=== PATIENT | female | born 1940 | race Hispanic/Latino ===

== ENCOUNTER → 2018-04-01 | Outpatient (CLI) | payer MEDICARE ==
[~2018-04-01] VITALS: Ht 151.1 cm; Wt 95.3 kg
[~2018-04-01] MED LIST: AEC81 PO; AMLO10TA2 PO; ATOR10TA69 PO; CEFTRIAXONE SODIUM 1 GM IVP SCH; DEXL60CA3 PO; DOCU100C33 PO; DONE5TAB33 PO; FURO20TA4 PO; GLIM2TAB3 PO; GLIM4TAB3 PO; LOSA1TAB54 PO; MEMA14CA5 PO
[2018-04-01 15:45] VITALS: BP 127/60
[2018-04-01 16:04] LABS: HEMATOCRIT 34.8 % (36-48); LYMPHOCYTES % (AUTO) 29.6 % (21.0-51.0); MEAN CORPUSCULAR HEMOGLOBIN 34.6 pg (27.0-33.0); MEAN CORPUSCULAR HGB CONC 34.6 g/dL (32.0-36.0); MEAN CORPUSCULAR VOLUME 99.8 fL (79-99); NEUTROPHILS % (AUTO) 58.4 % (40.0-77.0); NUCLEATED RED BLOOD CELLS 0.1 % (0.0-0.19); PLATELET COUNT (AUTO) 154 K/uL (130-400); RED BLOOD CELL COUNT(AUTO) 3.48 MIL/uL (4.00-5.50); RED CELL DISTRIBUTION WIDTH 14.1 % (11.0-15.5); WHITE BLOOD COUNT (AUTO) 4.4 K/uL (4.8-10.8)
[2018-04-01 16:06] LABS: APPEARANCE,URINE Clear (CLEAR); BILIRUBIN,URINE Negative (NEGATIVE); COLOR,URINE Yellow (YELLOW); GLUCOSE, URINE (UA) Negative (NEGATIVE); KETONES,URINE Negative (NEGATIVE); LEUKOCYTE ESTERASE ,URINE Large (NEGATIVE); NITRATE,URINE Negative (NEGATIVE); OCCULT BLOOD,URINE Small (NEGATIVE); PROTEIN,URINE Negative (NEGATIVE)
[2018-04-01 16:13] LABS: CREATININE 1.2 mg/dL (0.5-1.5); POTASSIUM 4.1 mmol/L (3.5-5.1)
[2018-04-01 16:15] LABS: BACTERIA,URINE Rare /HPF (None Seen); RBC,URINE 0-1 /HPF (0-1)
== END | disposition home or self-care (01) ==
LOC: DAH 10:00 → EDSTATUS 05-02 11:30
PROVIDERS: ATTEND Urology
DX: I21.9 Acute myocardial infarction, unspecified (principal); N39.41 Urge incontinence; R94.31 Abnormal electrocardiogram [ECG] [EKG]
CPT/HCPCS: 36415; 80048; 81001; 85025; 87088; 87186; 93005

== ENCOUNTER 2019-03-13 09:27 | Day surgery (SDC) | payer OTHER, MEDICARE ==
[2019-03-11 15:15] VITALS: BP 145/62
[2019-03-11 16:00] LABS: BASOPHILS % (AUTO) 0.7 % (0.0-5.0); LYMPHOCYTES % (AUTO) 20.8 % (21.0-51.0); MEAN CORPUSCULAR HEMOGLOBIN 32.9 pg (27.0-33.0); MEAN CORPUSCULAR HGB CONC 32.8 g/dL (32.0-36.0); MEAN CORPUSCULAR VOLUME 100.3 fL (79-99); MONOCYTES % (AUTO) 8.6 % (3.0-13.0); NEUTROPHILS % (AUTO) 67.9 % (40.0-77.0); PLATELET COUNT (AUTO) 131 K/uL (130-400); RED BLOOD CELL COUNT(AUTO) 3.19 MIL/uL (4.00-5.50); RED CELL DISTRIBUTION WIDTH 14.6 % (11.0-15.5); WHITE BLOOD COUNT (AUTO) 5.5 K/uL (4.8-10.8)
[2019-03-11 16:04] LABS: APPEARANCE,URINE SL CLOUDY (CLEAR); BILIRUBIN,URINE NEGATIVE (NEGATIVE); COLOR,URINE YELLOW (YELLOW); GLUCOSE, URINE (UA) NEGATIVE (NEGATIVE); KETONES,URINE NEGATIVE (NEGATIVE); LEUKOCYTE ESTERASE ,URINE SMALL (NEGATIVE); NITRATE,URINE NEGATIVE (NEGATIVE); OCCULT BLOOD,URINE NEGATIVE (NEGATIVE); PROTEIN,URINE NEGATIVE (NEGATIVE)
[2019-03-11 16:11] LABS: CREATININE 1.3 mg/dL (0.5-1.5); POTASSIUM 4.1 mmol/L (3.5-5.1)
[2019-03-11 16:20] LABS: BACTERIA,URINE Rare /HPF (None Seen); RBC,URINE None Seen /HPF (0-1)
--- NOTE | 2019-03-12 08:38 | NUR ---
FAXED ABNORMAL LABS TO DR. KEE. SPOKE TO BRANDI AT DR. KEE SHE WILL REPORT ABNORMALS AND CALL BACK IF NEEDED. REPORTED RBC3.19,HGB 10.5, HCT32.0,BUN 25, UA LEUKEST SMALL [facility]-5UA CULTURE.
--- NOTE | 2019-03-12 09:39 | NUR ---
RAFAEL COLLINS COFFEE BLENDER REVIEWED EKG, NO NEW ORDERS OK TO PROCEED. PER MARCUS FROM DR. KEE OFFICE NO NEW ORDERS AFTER SEEING LABS OK TO PROCEED.
[2019-03-13] VITALS (18 sets, daily range): BP systolic 121–148; BP diastolic 47–74
[~2019-03-13] VITALS: Ht 149.9 cm; Wt 93.9 kg
[~2019-03-13 09:27] MED LIST changes: -AMLO10TA2 PO; +AMLO10TA7 PO; +ATOR-2 PO; -ATOR10TA69 PO; +CEFTRIAXONE SODIUM 1 GM IVP ONE; -CEFTRIAXONE SODIUM 1 GM IVP SCH; -DOCU100C33 PO; -DONE5TAB33 PO; -FURO20TA4 PO; -GLIM4TAB3 PO; -MEMA14CA5 PO; +VITAMIN B12 PO; +VITAMIN D PO
[2019-03-13] MEDS ORDERED: SODIUM CHLORIDE 0.9% 1000ML 1,000 ML IV ONE (10:08)
[2019-03-13] MEDS ORDERED: CEFTRIAXONE SODIUM 1 GM ONE (10:08)
[2019-03-13] MEDS ORDERED: SERT50TA12 PO (10:29)
[2019-03-13] MEDS ORDERED: DONE10TA43 PO (10:29)
[2019-03-13] MEDS ORDERED: CHOL400C9 PO (10:29)
[2019-03-13] MEDS ORDERED: LIDOCAINE HCL 2% PF 20 ML JEL DISP.SYRIN MM ONE (11:48)
[2019-03-13] MEDS ORDERED: PROPOFOL 10 MG/ML 20ML VIAL IV ONE ×2 (11:51→12:14)
[2019-03-13] MEDS ORDERED: LIDOCAINE PF 2% 5ML ABBOJECT ONE (11:52)
[2019-03-13] MEDS ORDERED: BOTULINUM TOXIN TYPE A 100 UNITS/VIAL INJ SCH (12:00)
[2019-03-13] MEDS ORDERED: GLYCOPYRROLATE 1 MG/5 ML SYRINGE ONE (13:23)
--- NOTE | 2019-03-13 15:00 | NUR ---
PT DISCHARGED HOME, TOLERATING FLUIDS WELL (DRANK APPLE JUICE AND WATER), AMBULATING WELL S STAND-BY ASSISTANCE. DENIES ANY PAIN, NAUSEA OR DIZZINESS. NO EVIDENCE OF BLEEDING. PT VOIDED PRIOR TO DISCHARGE, SOME URINE PRESENT ON DRAW-SHEET, PT ALSO VOIDED INTO TOILET, APPEARS CLEAR YELLOW IN COLOR. PT AND DAUGHTER REPORT NO FURTHER QUESTIONS AT THIS TIME.
== END 2019-03-13 15:00 | disposition home or self-care (01) ==
LOC: DAH 09:27
PROVIDERS: ATTEND Urology
DX: N39.41 Urge incontinence (principal); I10 Essential (primary) hypertension; E66.9 Obesity, unspecified; E11.9 Type 2 diabetes mellitus without complications; K59.00 Constipation, unspecified; G30.9 Alzheimer's disease, unspecified; M19.90 Unspecified osteoarthritis, unspecified site; Z88.8 Allergy status to other drugs, medicaments and biological substances; Z98.890 Other specified postprocedural states
CPT/HCPCS: 36415; 52287; 80048; 81001; 82948 ×3; 85025; 87088; 93005; A4215; A4218; A4358; A4600; J0585; J0696; J2001; J2704 ×2; J3490; J7030; J7120

== ENCOUNTER → 2019-04-29 | Outpatient (CLI) | payer OTHER, MEDICARE ==
[~2019-04-29] MED LIST changes: -CEFTRIAXONE SODIUM 1 GM IVP ONE; +CHOL400C9 PO; +DONE10TA43 PO; +SERT50TA12 PO; -VITAMIN D PO
[2019-04-29 11:54] LABS: BASOPHILS % (AUTO) 0.8 % (0.0-5.0); EOSINOPHILS % (AUTO) 2.8 % (0.0-8.0); HEMATOCRIT 31.7 % (36-48); LYMPHOCYTES % (AUTO) 20.9 % (21.0-51.0); MEAN CORPUSCULAR HEMOGLOBIN 33.4 pg (27.0-33.0); MEAN CORPUSCULAR HGB CONC 33.1 g/dL (32.0-36.0); MEAN CORPUSCULAR VOLUME 100.8 fL (79-99); MONOCYTES % (AUTO) 8.3 % (3.0-13.0); NEUTROPHILS % (AUTO) 67.2 % (40.0-77.0); PLATELET COUNT (AUTO) 113 K/uL (130-400); RED BLOOD CELL COUNT(AUTO) 3.14 MIL/uL (4.00-5.50); RED CELL DISTRIBUTION WIDTH 14.5 % (11.0-15.5); WHITE BLOOD COUNT (AUTO) 4.4 K/uL (4.8-10.8)
== END | disposition home or self-care (01) ==
LOC: LAB 11:08
PROVIDERS: ATTEND Psychiatry & Neurology Neurology
DX: D53.1 Other megaloblastic anemias, not elsewhere classified (principal); M81.0 Age-related osteoporosis without current pathological fracture
CPT/HCPCS: 36415; 82306; 82607; 83090; 83921; 85025

== ENCOUNTER 2019-10-30 08:00 | Day surgery (SDC) | payer OTHER, MEDICARE ==
[2019-10-27 12:07] LABS: APPEARANCE,URINE Cloudy (CLEAR); BILIRUBIN,URINE Negative (NEGATIVE); COLOR,URINE Yellow (YELLOW); GLUCOSE, URINE (UA) Negative (NEGATIVE); KETONES,URINE Negative (NEGATIVE); LEUKOCYTE ESTERASE ,URINE Moderate (NEGATIVE); NITRATE,URINE Positive (NEGATIVE); OCCULT BLOOD,URINE Negative (NEGATIVE); PROTEIN,URINE Negative (NEGATIVE)
[2019-10-27 12:08] LABS: BASOPHILS % (AUTO) 0.8 % (0.0-5.0); EOSINOPHILS % (AUTO) 2.4 % (0.0-8.0); HEMATOCRIT 31.9 % (36-48); LYMPHOCYTES % (AUTO) 23.5 % (21.0-51.0); MEAN CORPUSCULAR HEMOGLOBIN 32.4 pg (27.0-33.0); MEAN CORPUSCULAR VOLUME 104.2 fL (79-99); MONOCYTES % (AUTO) 6.9 % (3.0-13.0); NEUTROPHILS % (AUTO) 66.2 % (40.0-77.0); PLATELET COUNT (AUTO) 159 K/uL (130-400); RED BLOOD CELL COUNT(AUTO) 3.06 MIL/uL (4.00-5.50); RED CELL DISTRIBUTION WIDTH 14.5 % (11.0-15.5); WHITE BLOOD COUNT (AUTO) 5.1 K/uL (4.8-10.8)
[2019-10-27 12:09] VITALS: BP 153/76
[2019-10-27 12:09] LABS: CREATININE 0.9 mg/dL (0.5-1.5); POTASSIUM 4.3 mmol/L (3.5-5.1)
[2019-10-27 12:22] LABS: BACTERIA,URINE Many /HPF (None Seen); RBC,URINE 0-1 /HPF (0-1); SQUAMOUS EPITHELIAL CELL,UR 0-2 /HPF (0-2)
--- NOTE | 2019-10-28 11:30 | NUR ---
ABNORMAL UA REPORTED TO DR. KEE. DR. KEE STATES OFFICE WILL HAVE TO CALL IN PRE MEDICATION TO PATIENTS PHARMACY. DR. KEE NURSE SARTHAK MCKINNEY NOTIFIED, AND STATED SHE WILL FOLLOWUP.
[2019-10-30] VITALS (18 sets, daily range): BP systolic 112–146; BP diastolic 56–78
[~2019-10-30] VITALS: Ht 147.3 cm; Wt 90.3 kg
[~2019-10-30 08:00] MED LIST changes: +ARIP5TAB56 PO; +ATOR10TA69 PO; +GABA-529 PO; -GLIM2TAB3 PO; +GLIM2TAB30 PO; +MELA3TAB66 PO; +NEURIVA PO; -SERT50TA12 PO
[2019-10-30] MEDS ORDERED: SODIUM CHLORIDE 0.9% 1000ML 1,000 ML IV ONE (08:22)
[2019-10-30] MEDS: BOTULINUM TOXIN TYPE A 100 UNITS/VIAL INJ SCH ×2 (08:30→11:21)
[2019-10-30] MEDS: CEFTRIAXONE SODIUM 1 GM ONE ×2 (08:48→11:12)
[2019-10-30] MEDS ORDERED: LEVO500T89 PO (09:11)
[2019-10-30] MEDS ORDERED: DEXAMETHASONE SOD PHOSPHATE 10MG/ML 1ML VIAL ONE (11:05)
[2019-10-30] MEDS ORDERED: MIDAZOLAM HCL 1 MG/ML 2ML VIAL ONE (11:06)
[2019-10-30] MEDS ORDERED: FENTANYL CITRATE PF 50 MCG/1 ML 2ML VIAL ONE (11:06)
[2019-10-30] MEDS ORDERED: PROPOFOL 10 MG/ML 20ML VIAL IV ONE (11:06)
[2019-10-30] MEDS ORDERED: ONDANSETRON HCL 4 MG/2 ML VIAL ONE (11:06)
[2019-10-30] MEDS ORDERED: GLYCOPYRROLATE 1 MG/5 ML SYRINGE ONE (11:22)
== END 2019-10-30 13:21 | disposition home or self-care (01) ==
LOC: DAH 08:00
PROVIDERS: ATTEND Urology
DX: N39.41 Urge incontinence (principal); N30.80 Other cystitis without hematuria; I10 Essential (primary) hypertension; E11.9 Type 2 diabetes mellitus without complications; G47.33 Obstructive sleep apnea (adult) (pediatric); E66.9 Obesity, unspecified; M19.90 Unspecified osteoarthritis, unspecified site; G30.9 Alzheimer's disease, unspecified; Z88.8 Allergy status to other drugs, medicaments and biological substances; F02.80 Dementia in other diseases classified elsewhere, unspecified severity, without behavioral disturbance, psychotic disturbance, mood disturbance, and anxiety; Z96.653 Presence of artificial knee joint, bilateral; Z98.890 Other specified postprocedural states; Z68.41 Body mass index [BMI] 40.0-44.9, adult; Z79.2 Long term (current) use of antibiotics; Z79.899 Other long term (current) drug therapy; Z79.82 Long term (current) use of aspirin; Z87.891 Personal history of nicotine dependence; Z86.010 Personal history of colon polyps; Z82.49 Family history of ischemic heart disease and other diseases of the circulatory system; Z83.3 Family history of diabetes mellitus
CPT/HCPCS: 36415; 52287; 80048; 81001; 82948 ×2; 85025; 87077; 87088; 87186; 93005; A4213; A4215 ×2; A4221; A4222; A4223; A4600; A4663; A4930; A6260; J0585; J0696; J1100; J2250; J2405; J2704; J3010; J3490; J7030; J7120

== ENCOUNTER 2020-05-28 12:00 | Inpatient (IN) | payer OTHER, MEDICARE ==
[~2020-05-28] VITALS: Ht 154.9 cm; Wt 81.7 kg
[~2020-05-28 12:00] MED LIST changes: +LEVO500T89 PO; +MELA3TAB41 PO; -MELA3TAB66 PO
[2020-05-28 12:32] LABS: BASOPHILS % (AUTO) 0.3 % (0.0-5.0); EOSINOPHILS % (AUTO) 1.7 % (0.0-8.0); HEMATOCRIT 32.6 % (36-48); LYMPHOCYTES % (AUTO) 5.7 % (21.0-51.0); MEAN CORPUSCULAR HGB CONC 33.4 g/dL (32.0-36.0); MEAN CORPUSCULAR VOLUME 98.8 fL (79-99); NEUTROPHILS % (AUTO) 85.4 % (40.0-77.0); PLATELET COUNT (AUTO) 200 K/uL (130-400); RED CELL DISTRIBUTION WIDTH 13.6 % (11.0-15.5); WHITE BLOOD COUNT (AUTO) 7.8 K/uL (4.8-10.8)
[2020-05-28 12:53] LABS: ALBUMIN 2.9 g/dL (3.5-5.0); BILIRUBIN,TOTAL 0.8 mg/dL (0.2-1.0); CREATININE 2.9 mg/dL (0.5-1.5); CRP QUANTITATIVE 160.7 mg/L (0.00-9.0); POTASSIUM 4.5 mmol/L (3.5-5.1)
[2020-05-28 12:53] LABS: ABG BASE EXCESS -3.8 mmol/L (-2.0-3.0); ABG HCO3 19.1 mmol/L (21.0-28.0); ABG OXYGEN SATURATION 94.9 % (95.0-99.0); ABG PCO2 29 mmHg (32-45)
[2020-05-28 12:58] LABS: FERRITIN 499 ng/mL (15-150)
[2020-05-28 13:41] LABS: INR 0.97 (0.85-1.15); PARTIAL THROMBOPLASTIN TIME 26.1 SEC (26.3-35.5); PROTHROMBIN TIME 10.5 SEC (9.6-11.6)
[2020-05-28 13:45] LABS: ERYTHROCYTE SEDIMENTATION RATE 80 MM/HR (0-30)
[2020-05-28] MEDS ORDERED: CEFTRIAXONE SODIUM 1 GM ONE (14:31)
[2020-05-28] MEDS ORDERED: SODIUM CHLORIDE 0.9% 1000ML 2,000 ML IV ONE (14:32)
[2020-05-28] MEDS ORDERED: SODIUM CHLORIDE 0.9% 100 ML IV ONE (14:32)
[2020-05-28 14:38] LABS: APPEARANCE,URINE Clear (CLEAR); BILIRUBIN,URINE Negative (NEGATIVE); COLOR,URINE Yellow (YELLOW); GLUCOSE, URINE (UA) Negative (NEGATIVE); KETONES,URINE Negative (NEGATIVE); LEUKOCYTE ESTERASE ,URINE Trace (NEGATIVE); NITRATE,URINE Negative (NEGATIVE); OCCULT BLOOD,URINE Negative (NEGATIVE); PROTEIN,URINE Negative (NEGATIVE)
[2020-05-28 14:47] LABS: BACTERIA,URINE Few /HPF (None Seen); RBC,URINE 0-1 /HPF (0-1); SQUAMOUS EPITHELIAL CELL,UR Few /HPF (0-2); WBC,URINE 0-1 /HPF (0-1); YEAST,URINE BUDDING Few /HPF (None Seen)
[2020-05-28] MEDS ORDERED: DOXYCYCLINE 100MG+NS 250ML IV SCH (16:00)
[2020-05-28 17:43] LABS: HEMOGLOBIN A1C 6.8 % (4.0-6.0)
[2020-05-28 17:53] LABS: CRP QUANTITATIVE 155.1 mg/L (0.00-9.0); TROPONIN I 0.04 ng/mL (0.00-0.06)
[2020-05-28 18:57] VITALS: BP 111/69
[2020-05-28] MEDS ORDERED: METHYLPREDNISOLONE SOD SUCC 40MG/ML 1ML ONE (19:59)
[2020-05-28] MEDS: LACTATED RINGERS 1000ML 1,000 ML IV SCH (20:55)
[2020-05-28] MEDS: INSULIN HUMULIN R 100 UNIT/ML 3ML SQ SCH (21:00)
[2020-05-28] MEDS: METHYLPREDNISOLONE SOD SUCC 40MG/ML 1ML IVP SCH (21:03)
[2020-05-28] MEDS: FAMOTIDINE 20MG TAB 20 MG TAB PO SCH (21:05)
[2020-05-28] MEDS: DOXYCYCLINE HYCLATE 100 MG TABLET PO SCH (23:03)
--- NOTE | 2020-05-29 00:01 | NUR ---
Resting Comfortably Pt is lying in bed without any distress noted at this time. Has a nonrebreather intact at this time @15 liters. Oxygen saturation at 96%. Has an order for a continuous saturation check and respiratory have been notified to start checks. Pollock catheter intact and draining clear yellow urine, at this time. Daughter was talking to charge nurse about some history information to help with patient's admission process. Patient has a history of dementia.
[2020-05-29 00:36] LABS: TROPONIN I 0.04 ng/mL (0.00-0.06)
[2020-05-29 01:00] VITALS: BP 137/48
[2020-05-29] MEDS: LACTATED RINGERS 1000ML 1,000 ML IV SCH ×3 (02:30→21:57)
[2020-05-29 04:05] LABS: CREATININE 1.8 mg/dL (0.5-1.5); PHOSPHORUS 3.9 mg/dL (2.5-4.9); POTASSIUM 4.3 mmol/L (3.5-5.1)
[2020-05-29 06:23] VITALS: BP 146/69
[2020-05-29] MEDS: INSULIN HUMULIN R 100 UNIT/ML 3ML SQ SCH ×4 (06:44→21:00)
[2020-05-29] MEDS: DOXYCYCLINE HYCLATE 100 MG TABLET PO SCH ×2 (08:18→21:02)
[2020-05-29] MEDS: METHYLPREDNISOLONE SOD SUCC 40MG/ML 1ML IVP SCH ×3 (08:18→21:02)
[2020-05-29] MEDS: ASCORBIC ACID 500 MG TAB PO SCH (08:18)
[2020-05-29] MEDS: ENOXAPARIN SODIUM 40 MG/0.4 ML SYRINGE SQ SCH (08:22)
[2020-05-29 08:25] VITALS: BP 137/73
[2020-05-29 08:48] LABS: CREATINE KINASE, TOTAL 97 U/L (21-232); MYOGLOBIN 187 ng/mL (10-92); TROPONIN I < 0.04 ng/mL (0.00-0.06)
--- NOTE | 2020-05-29 09:45 | NUR ---
ON EVALUATION PT LOOKS DISORIENTED BUT COOPERATIVE. HX OF DEMENTIA.
[2020-05-29 11:26] VITALS: BP 137/54
--- NOTE | 2020-05-29 12:45 | NUR ---
PT IS TURNING ANXIOUS AND UNCOOPERATIVE, SCREAMING AND VERBALIZING "SHE WANTS TO GO HOME BECAUSE SHE NEED TO TAKE CARE OF HER BABIES". FAMILY WAS NOTIFY ABOUT PT CONDITION BY PHONE CALL.
--- NOTE | 2020-05-29 14:30 | NUR ---
PT CONTINUED ANXIOUS AND TURNING AGGRESSIVE TAKING OUT HER NRB MASK, O2 LEVELS DECREASE EVERY TIME SHE REMOVED THE NRB MASK. DR. Goodson WAS NOTIFY AND ORDERED A ONE TO ONE TO MONITOR PT.
[2020-05-29 16:03] VITALS: BP 143/96
--- NOTE | 2020-05-29 17:00 | NUR ---
INITIAL INITIAL SW spoke to patient's daughter, Tia Avina. Patient lives with 21 year old great granddaughter. She has no home health but does have PHC with [facility] 21 hours a week and respite hours. DME: BPM, glucometer (no insulin), shower chair. Patient has dementia and needs assistance with ADL's and does not drive. PCP is Dr. Vela. Pharmacy is [facility] located on [address] in [place]. DCP is home. Addendum: 05/29/20 at 1702 by LANI COY Amended: Links added.
[2020-05-29 20:39] VITALS: BP 143/78
[2020-05-29] MEDS: ALPRAZOLAM 0.25 MG TABLET PO SCH (21:03)
[2020-05-29] MEDS: FAMOTIDINE 20MG TAB 20 MG TAB PO SCH (21:03)
--- NOTE | 2020-05-29 23:41 | NUR ---
Patient's daughters called to check on her status Patient's daughters Debbie and La Nena called earlier (approximately 0 & 0) to check to see how there mom was doing. Both reported that she has never been alone, without them and that they were concerned that she was anxious and worried about home. I told them that she was crying on days, per 7A-7p nurse. She had some anxiety and trying to yell and scream, but medication was ordered for anxiety and I had given it. Daughters did say that she was taking medication for anxiety at home. She has a 1:1 sitter in the room to monitor her, as well. Mittens to both hands to help prevent pulling at tubes. Will continue to monitor throughout night & daughters asked if they could call to check on their mom and I said yes. I will be here, until tomorrow morning.
[2020-05-30] MEDS ORDERED: LORAZEPAM 2 MG/ML 1 ML VIAL IM ONE (01:45)
[2020-05-30] MEDS ORDERED: LORAZEPAM 2 MG/ML 1 ML VIAL ONE (01:46)
--- NOTE | 2020-05-30 01:54 | NUR ---
Patient is very agitated Patient has started back trying to take off her mittens and sitter reported that she had pulled at IV site and may have pulled out. Call was placed to doctor motion picture director, Dr. Noble and obtained an order for an antianxiety medication IM. She prescribed Ativan 0.5mg IM x 1. Patient was offered water to drink and turned down her lights to help relax her. She continues to want to go home. Oxygen saturation 96% on nonrebreather, SU=411.
--- NOTE | 2020-05-30 04:29 | NUR ---
Patient is starting to slow down Patient is starting to slow down, but not asleep. Sitter in room, bedside her bed, helping put the mittens back on hands. The kicking and fighting has slowed, but not totally ceased. Charge nurse aware of patient's behavior and a medication review for an adjustment will be discussed with possibly a prn dosage of anxiety medication. She is on a scheduled dose of xanax 0.25mg bid that was started on yesterday.
[2020-05-30] MEDS: INSULIN HUMULIN R 100 UNIT/ML 3ML SQ SCH ×4 (06:12→20:28)
[2020-05-30 06:24] VITALS: BP 157/74
[2020-05-30 08:00] VITALS: BP 170/72
[2020-05-30] MEDS: METHYLPREDNISOLONE SOD SUCC 40MG/ML 1ML IVP SCH ×3 (08:51→20:27)
[2020-05-30] MEDS: ASCORBIC ACID 500 MG TAB PO SCH (08:51)
[2020-05-30] MEDS: DOXYCYCLINE HYCLATE 100 MG TABLET PO SCH ×2 (08:51→20:27)
[2020-05-30] MEDS: LACTATED RINGERS 1000ML 1,000 ML IV SCH ×2 (08:52→17:57)
[2020-05-30] MEDS: ENOXAPARIN SODIUM 40 MG/0.4 ML SYRINGE SQ SCH (08:52)
[2020-05-30] MEDS: ALPRAZOLAM 0.25 MG TABLET PO SCH (08:52)
[2020-05-30 09:09] LABS: CREATININE 1.5 mg/dL (0.5-1.5); POTASSIUM 4.1 mmol/L (3.5-5.1)
[2020-05-30] MEDS ORDERED: ALPRAZOLAM 0.5 MG TABLET ONE (09:31)
[2020-05-30] MEDS: ALPRAZOLAM 0.5 MG TABLET PO SCH ×3 (10:39→20:27)
[2020-05-30 12:00] VITALS: BP 148/89
[2020-05-30] MEDS ORDERED: LORAZEPAM 2 MG/ML 1 ML VIAL IVP SCH (12:15)
[2020-05-30] MEDS ORDERED: HALOPERIDOL DECANOATE 100 MG/ML ML IM PRN (15:00)
[2020-05-30 16:00] VITALS: BP 176/78
[2020-05-30 20:00] VITALS: BP 159/73
[2020-05-30] MEDS: FAMOTIDINE 20MG TAB 20 MG TAB PO SCH (20:27)
[2020-05-31] VITALS: BP 158/76
--- NOTE | 2020-05-31 00:30 | NUR ---
HR >40 Pt HR noted to go down to 37 bpm while sleeping, pt awakened, arousable by voice and touch, repositioned, HR would increase to 70bpm then as pt falls back to sleep, HR goes between 38-45 bmp. Paged hospitalist educational administration teacher, awaiting call back to notify provider. Patient resting in bed comfortably, resp even and unlabored, on NRB 15L, BP 173/70, pt has LR infustion 100 ml/hr. No signs of distress noted. Pt on 1:1 with sitter present, will continue to monitor. Addendum: 05/31/20 at 0048 by EMMA MORENO RN RN HR < 40bpm Addendum: 05/31/20 at 0109 by EMMA MORENO RN RN Received call back from Dr. Noble and notified provider about pt HR, no new orders received at this time. Pt continues to remain stable. Will continue to monitor.
[2020-05-31] MEDS ORDERED: NITROGLYCERIN 1GM/1 INCH PACKET TD PRN (03:30)
--- NOTE | 2020-05-31 03:40 | NUR ---
Elevated BP Pt BP 190/84, rechecked BP 187/81, HR 48. Pt resting in bed comfortably, respirations even and unlabored, sat 96%. Paged it consulting director hospitalist, Dr. Noble returned call, orders received. Pt given hydralazine 10mg IVP, Lacted Ringers IVF discontinued at this time. Pt also has order for nitropaste if SBP >180 after using hydralazine. Will recheck BP in 1 hour.
[2020-05-31] MEDS: HYDRALAZINE HCL 20 MG/ML VIAL IV PRN ×2 (03:43→16:52)
[2020-05-31 04:00] VITALS: BP 157/71
--- NOTE | 2020-05-31 04:32 | NUR ---
BP Recheck Pt BP 157/71, HR 60. Pt resting in bed, no distress noted. Will continue to monitor.
[2020-05-31] MEDS: INSULIN HUMULIN R 100 UNIT/ML 3ML SQ SCH ×4 (06:25→20:54)
[2020-05-31 07:03] LABS: CREATININE 1.3 mg/dL (0.5-1.5); POTASSIUM 3.6 mmol/L (3.5-5.1)
[2020-05-31 07:30] VITALS: BP 152/74
[2020-05-31] MEDS: ASCORBIC ACID 500 MG TAB PO SCH (09:30)
[2020-05-31] MEDS: CEFTRIAXONE SODIUM 1 GM IVP SCH ×2 (09:30→20:53)
[2020-05-31] MEDS: ALPRAZOLAM 0.5 MG TABLET PO SCH ×4 (09:30→20:53)
[2020-05-31] MEDS: DOXYCYCLINE HYCLATE 100 MG TABLET PO SCH ×2 (09:30→20:53)
[2020-05-31] MEDS: METHYLPREDNISOLONE SOD SUCC 40MG/ML 1ML IVP SCH ×3 (09:30→20:54)
[2020-05-31] MEDS: ENOXAPARIN SODIUM 40 MG/0.4 ML SYRINGE SQ SCH (09:31)
[2020-05-31] MEDS: ACETAMINOPHEN 325 MG TAB PO PRN (09:46)
[2020-05-31 11:00] VITALS: BP 147/65
[2020-05-31] MEDS: MORPHINE SULFATE 2 MG/ML 1ML SYG IVP PRN (12:57)
[2020-05-31 16:00] VITALS: BP 187/78
[2020-05-31 20:00] VITALS: BP 169/77
[2020-05-31] MEDS: FAMOTIDINE 20MG TAB 20 MG TAB PO SCH (20:53)
[2020-06-01] VITALS: BP 150/76
[2020-06-01] MEDS: MORPHINE SULFATE 2 MG/ML 1ML SYG IVP PRN ×2 (01:39→08:57)
--- NOTE | 2020-06-01 01:40 | NUR ---
Restless Pt awaken, moaning and eyes tearing, facial grimacing noted. Pt moving round in bed, restless. Pt unable to verbalize needs, asked pt if she is having pain and pt would moan. HR increased from 60s to 90s, RR 18, O2 sat 96% on NRB. Pt given morphine 1mg IVP as ordered.
--- NOTE | 2020-06-01 03:40 | NUR ---
Refused AM Labs Pt refused morning labs, became agitated and did not want her blood to be drawn to obtain ordered labs. Addendum: 06/01/20 at 0402 by EMMA MORENO RN RN This note was entered in error, wrong patient.
[2020-06-01 03:45] VITALS: BP 156/65
[2020-06-01 04:19] LABS: HEMATOCRIT 31.5 % (36-48); LYMPHOCYTES % (AUTO) 4.3 % (21.0-51.0); MEAN CORPUSCULAR HEMOGLOBIN 32.2 pg (27.0-33.0); MEAN CORPUSCULAR HGB CONC 32.4 g/dL (32.0-36.0); MEAN CORPUSCULAR VOLUME 99.4 fL (79-99); MONOCYTES % (AUTO) 5.6 % (3.0-13.0); NEUTROPHILS % (AUTO) 88.3 % (40.0-77.0); PLATELET COUNT (AUTO) 233 K/uL (130-400); RED BLOOD CELL COUNT(AUTO) 3.17 MIL/uL (4.00-5.50); RED CELL DISTRIBUTION WIDTH 13.5 % (11.0-15.5); WHITE BLOOD COUNT (AUTO) 7.3 K/uL (4.8-10.8)
[2020-06-01 04:46] LABS: ALBUMIN 2.8 g/dL (3.5-5.0); BILIRUBIN,TOTAL 0.4 mg/dL (0.2-1.0); CREATININE 1.3 mg/dL (0.5-1.5); CRP QUANTITATIVE 32.9 mg/L (0.00-9.0); POTASSIUM 3.7 mmol/L (3.5-5.1); TOTAL PROTEIN, SERUM 7.2 g/dL (6.0-8.3)
[2020-06-01] MEDS: INSULIN HUMULIN R 100 UNIT/ML 3ML SQ SCH ×4 (05:52→21:00)
[2020-06-01] MEDS: ASCORBIC ACID 500 MG TAB PO SCH (08:54)
[2020-06-01] MEDS: DOXYCYCLINE HYCLATE 100 MG TABLET PO SCH ×2 (08:54→21:00)
[2020-06-01] MEDS: ALPRAZOLAM 0.5 MG TABLET PO SCH ×3 (08:54→21:00)
[2020-06-01] MEDS: CEFTRIAXONE SODIUM 1 GM IVP SCH ×2 (08:54→21:00)
[2020-06-01] MEDS: METHYLPREDNISOLONE SOD SUCC 40MG/ML 1ML IVP SCH ×2 (08:54→15:10)
[2020-06-01] MEDS: ENOXAPARIN SODIUM 40 MG/0.4 ML SYRINGE SQ SCH (08:55)
--- NOTE | 2020-06-01 10:00 | NUR ---
PATIENT AWAKE IN BED WITH MOANING AND RESTLESS MOVEMENT NOTED. APPEARS TO BE ANXIOUS/AGITATED. NO VERBAL RESPONSE WHEN ASKED ABOUT PAIN OR NEEDS AT THIS TIME. PT WITH KNOWN HISTORY OF DEMENTIA. HEART RATE 115 AT THIS TIME. RESPIRATIONS EVEN AND UNLABORED. O2 SAT 98% ON 100% NRB. MORPHINE 1 MG IVP ADMINISTERED ORDERED ALONG WITH SCHEDULED MEDICATIONS. ORAL MEDS CRUSHED AND GIVEN IN APPLESAUCE. REPOSITIONED IN BED FOR COMFORT. WILL CONTINUE TO MONITOR. 1:1 SITTER PRESENT. SAFETY PRECAUTIONS IN PLACE.
--- NOTE | 2020-06-01 10:45 | NUR ---
SPOKE WITH PATIENT'S DAUGHTER, KARINE DELA CRUZ, VIA PHONE WITH PATIENT UPDATES, VOICED CONCERNED ABOUT HER MOTHER'S CONDITION AND WANTED TO KNOW IF PATIENT WAS RECEIVING HER ANXIETY MEDICATION. INFORMED PT'S DAUGHTER THAT MORPHINE 1 MG IVP AND ORAL XANAX WAS ADMINISTERED ORDERED WITH MORNING MEDICATIONS. PT'S DAUGHTER STATED, "I THOUGHT THEY HAD WENT UP ON HER DOSE OF ANXIETY MEDICATIONS." NURSE ALSO DISCUSSED PATIENT'S CODE STATUS WITH DAUGHTER. KARINE DELA CRUZ TO DISCUSS PT'S CODE STATUS WITH HER FAMILY PRIOR TO MAKING A DECISION AND STATED, "I WILL BE CALLING BACK LATER."
[2020-06-01 12:21] VITALS: BP 156/72
[2020-06-01 15:50] VITALS: BP 161/83
[2020-06-01] MEDS: DEXTROSE 5%-WATER 1,000 ML IV SCH (18:00)
[2020-06-01] MEDS ORDERED: DEXAMETHASONE SOD PHOSPHATE 4 MG/ML 1ML VIAL IVP SCH (18:45)
--- NOTE | 2020-06-01 18:48 | NUR ---
NEW ORDER FOR D5W NOTED. DR. SORIA MADE AWARE THAT D5W WAS NOT AVAILABLE AT THIS TIME.
[2020-06-01] MEDS: FAMOTIDINE 20MG TAB 20 MG TAB PO SCH (21:00)
[2020-06-01] MEDS ORDERED: DEXAMETHASONE SOD PHOSPHATE 4 MG/ML 1ML VIAL ONE (21:17)
[2020-06-01 21:51] VITALS: BP 162/72
[2020-06-02 01:45] VITALS: BP 164/93
[2020-06-02] MEDS: MORPHINE SULFATE 2 MG/ML 1ML SYG IVP PRN (04:22)
[2020-06-02] MEDS: INSULIN HUMULIN R 100 UNIT/ML 3ML SQ SCH ×4 (06:12→22:09)
[2020-06-02] MEDS: DEXTROSE 5%-WATER 1,000 ML IV SCH (06:12)
[2020-06-02 06:26] VITALS: BP 160/75
[2020-06-02 07:14] LABS: CREATININE 1.5 mg/dL (0.5-1.5); POTASSIUM 3.7 mmol/L (3.5-5.1)
[2020-06-02 07:48] LABS: CRP QUANTITATIVE 17.4 mg/L (0.00-9.0)
[2020-06-02] MEDS: ALPRAZOLAM 0.5 MG TABLET PO SCH ×3 (09:30→20:59)
[2020-06-02] MEDS: ASCORBIC ACID 500 MG TAB PO SCH (09:30)
[2020-06-02] MEDS: CEFTRIAXONE SODIUM 1 GM IVP SCH ×2 (09:30→20:59)
[2020-06-02] MEDS: DOXYCYCLINE HYCLATE 100 MG TABLET PO SCH ×2 (09:30→20:59)
[2020-06-02] MEDS: DEXAMETHASONE SOD PHOSPHATE 4 MG/ML 1ML VIAL IVP SCH (09:31)
[2020-06-02] MEDS: ENOXAPARIN SODIUM 40 MG/0.4 ML SYRINGE SQ SCH (09:31)
[2020-06-02 11:44] VITALS: BP 134/72
--- NOTE | 2020-06-02 12:30 | NUR ---
PT'S DAUGHTER, KARINE DELA CRUZ, UPDATED ON PT'S CONDITION. NO CONCERNS VOICED AT THIS TIME.
[2020-06-02] MEDS: DEXTROSE 10%-WATER 1,000 ML IV SCH (13:30)
[2020-06-02 16:00] VITALS: BP 160/75
[2020-06-02 19:57] VITALS: BP 152/47
[2020-06-02] MEDS: FAMOTIDINE 20MG TAB 20 MG TAB PO SCH (20:59)
[2020-06-02 23:26] VITALS: BP 157/71
[2020-06-02] MEDS ORDERED: ATROPINE SULFATE 0.1 MG/ML 10 ML SYG IVP PRN (23:45)
[2020-06-03] MEDS ORDERED: ATROPINE SULFATE 0.1 MG/ML 10 ML SYG IVP ONE (00:11)
[2020-06-03] MEDS: DEXTROSE 10%-WATER 1,000 ML IV SCH ×2 (03:52→17:13)
[2020-06-03 03:54] VITALS: BP 162/69
[2020-06-03 05:58] LABS: CREATININE 1.1 mg/dL (0.5-1.5); CRP QUANTITATIVE 11.8 mg/L (0.00-9.0); POTASSIUM 3.3 mmol/L (3.5-5.1)
[2020-06-03] MEDS: INSULIN HUMULIN R 100 UNIT/ML 3ML SQ SCH ×4 (07:30→20:24)
[2020-06-03 07:48] VITALS: BP 162/62
[2020-06-03 08:12] LABS: BASOPHILS % (AUTO) 0.1 % (0.0-5.0); HEMATOCRIT 31.8 % (36-48); LYMPHOCYTES % (AUTO) 7.5 % (21.0-51.0); MEAN CORPUSCULAR HEMOGLOBIN 32.6 pg (27.0-33.0); MEAN CORPUSCULAR HGB CONC 32.1 g/dL (32.0-36.0); MEAN CORPUSCULAR VOLUME 101.6 fL (79-99); MONOCYTES % (AUTO) 8.1 % (3.0-13.0); NEUTROPHILS % (AUTO) 82.8 % (40.0-77.0); NUCLEATED RED BLOOD CELLS 0.2 % (0.0-0.19); PLATELET COUNT (AUTO) 176 K/uL (130-400); RED BLOOD CELL COUNT(AUTO) 3.13 MIL/uL (4.00-5.50); RED CELL DISTRIBUTION WIDTH 13.4 % (11.0-15.5); WHITE BLOOD COUNT (AUTO) 8.5 K/uL (4.8-10.8)
[2020-06-03] MEDS: ALPRAZOLAM 0.5 MG TABLET PO SCH ×3 (09:00→20:19)
--- NOTE | 2020-06-03 09:12 | NUR ---
DR. SORIA ROUNDED, MADE AWARE OF PATIENT BEING BRADYCARDIC AND HEART RATE CONSISTENTLY LESS THAN 40 AT TIMES. VERBAL ORDER TO CONSULT CARDIOLOGY. [facility] NOTIFIED, DR. DAY ON TODAY.
[2020-06-03] MEDS: ASCORBIC ACID 500 MG TAB PO SCH (09:57)
[2020-06-03] MEDS: DEXAMETHASONE SOD PHOSPHATE 4 MG/ML 1ML VIAL IVP SCH (09:57)
[2020-06-03] MEDS: DOXYCYCLINE HYCLATE 100 MG TABLET PO SCH ×2 (09:57→20:17)
[2020-06-03] MEDS: CEFTRIAXONE SODIUM 1 GM IVP SCH ×2 (09:57→20:17)
[2020-06-03] MEDS: ENOXAPARIN SODIUM 40 MG/0.4 ML SYRINGE SQ SCH (09:58)
--- NOTE | 2020-06-03 11:38 | NUR ---
DR. DAY ROUNDED R/T CONSULT FOR BRADYCARDIA. MADE RECOMMENDATIONS TO NOT RESUME HOME MEDICATIONS, ARIPIPRAZOLE AND DONEPEZIL, DUE TO BOTH MEDICATIONS CAUSES BRADYCARDIA. VSS. PATIENT IS ASYMPTOMATIC AT THIS TIME.
[2020-06-03 11:51] VITALS: BP 151/51
--- NOTE | 2020-06-03 12:10 | NUR ---
PT'S DAUGHTER, KARINE DELA CRUZ, UPDATED VIA PHONE. REQUESTED CALL FROM PROVIDER.
[2020-06-03 16:00] VITALS: BP 139/55
[2020-06-03 19:50] VITALS: BP 145/75
[2020-06-03] MEDS: FAMOTIDINE 20MG TAB 20 MG TAB PO SCH (20:17)
[2020-06-03 23:11] VITALS: BP 142/66
[2020-06-04 03:16] VITALS: BP 155/49
[2020-06-04 05:16] LABS: BASOPHILS % (AUTO) 0.1 % (0.0-5.0); HEMATOCRIT 32.6 % (36-48); LYMPHOCYTES % (AUTO) 7.6 % (21.0-51.0); MEAN CORPUSCULAR HEMOGLOBIN 32.4 pg (27.0-33.0); MEAN CORPUSCULAR HGB CONC 33.1 g/dL (32.0-36.0); MEAN CORPUSCULAR VOLUME 97.9 fL (79-99); MONOCYTES % (AUTO) 6.9 % (3.0-13.0); NEUTROPHILS % (AUTO) 83.9 % (40.0-77.0); PLATELET COUNT (AUTO) 163 K/uL (130-400); RED BLOOD CELL COUNT(AUTO) 3.33 MIL/uL (4.00-5.50); RED CELL DISTRIBUTION WIDTH 13.1 % (11.0-15.5); WHITE BLOOD COUNT (AUTO) 9.5 K/uL (4.8-10.8)
[2020-06-04 05:39] LABS: ALBUMIN 2.6 g/dL (3.5-5.0); BILIRUBIN,TOTAL 0.5 mg/dL (0.2-1.0); CREATININE 0.9 mg/dL (0.5-1.5); CRP QUANTITATIVE 9.7 mg/L (0.00-9.0); POTASSIUM 3.3 mmol/L (3.5-5.1); TOTAL PROTEIN, SERUM 6.7 g/dL (6.0-8.3)
[2020-06-04] MEDS: DEXTROSE 10%-WATER 1,000 ML IV SCH ×2 (05:48→10:16)
[2020-06-04] MEDS: INSULIN HUMULIN R 100 UNIT/ML 3ML SQ SCH ×4 (06:41→21:43)
[2020-06-04 08:00] VITALS: BP 136/69
--- NOTE | 2020-06-04 08:49 | NUR ---
AWAKE IN BED WATCHING TELEVISION. ALERT AND ORIENTED TO SELF AND PLACE. GENERALIZED WEAKNESS. RESPIRATIONS EVEN AND UNLABORED. O2 SAT 90-91% ON ROOM AIR. STANDBY ASSIST WITH BREAKFAST THIS MORNING, FED SELF APPLESAUCE AND DRANK 50% OF MILK. 1:1 SITTER. WILL CONTINUE TO MONITOR. SAFETY PRECAUTIONS IN PLACE. Addendum: 06/04/20 at 0857 by DEBORA BROWN RN RN O2 APPLIED VIA NC 1L, O2 SAT INCREASED TO 94%.
[2020-06-04] MEDS: ALPRAZOLAM 0.5 MG TABLET PO SCH ×4 (09:00→21:41)
[2020-06-04] MEDS: CEFTRIAXONE SODIUM 1 GM IVP SCH ×2 (09:03→21:41)
[2020-06-04] MEDS: ASCORBIC ACID 500 MG TAB PO SCH (09:03)
[2020-06-04] MEDS: DOXYCYCLINE HYCLATE 100 MG TABLET PO SCH ×2 (09:03→21:41)
[2020-06-04] MEDS: ENOXAPARIN SODIUM 40 MG/0.4 ML SYRINGE SQ SCH (09:04)
[2020-06-04] MEDS: DEXAMETHASONE SOD PHOSPHATE 4 MG/ML 1ML VIAL IVP SCH (09:04)
[2020-06-04] MEDS ORDERED: POTASSIUM CHLORIDE 20MEQ/100ML 100 ML IV PRN (09:45)
[2020-06-04] MEDS ORDERED: NITROGLYCERIN 1GM/1 INCH PACKET TD PRN (09:45)
[2020-06-04] MEDS ORDERED: LIDOCAINE HCL-MPF 1% 2ML VIAL IV PRN (09:45)
[2020-06-04] MEDS ORDERED: POTASSIUM CHLORIDE 10% ELIXIR 20 MEQ/15 ML UDCUP PO PRN (09:45)
[2020-06-04] MEDS: POTASSIUM CHLORIDE 20 MEQ ERTAB PO PRN ×2 (09:56→12:00)
--- NOTE | 2020-06-04 11:31 | NUR ---
PT TO BE TRANSFERRED TO SECOND FLOOR. REPORT ENDORSED TO ART HARDIN.
[2020-06-04 12:32] VITALS: BP 146/66
[2020-06-04 15:00] VITALS: BP 142/70
--- NOTE | 2020-06-04 18:16 | NUR ---
Pt arrived to unit transported by staff, IVF infusing, pt currently on 1 liter of supplemental oxygen. Vitals entered into flowsheet. No acute distress reported or observed. Will continue with current plan of care.
[2020-06-04 20:36] VITALS: BP 173/69
[2020-06-04] MEDS: FAMOTIDINE 20MG TAB 20 MG TAB PO SCH (21:41)
[2020-06-04 23:38] VITALS: BP 179/77
[2020-06-05 05:18] LABS: BASOPHILS % (AUTO) 0.2 % (0.0-5.0); EOSINOPHILS % (AUTO) 0.3 % (0.0-8.0); HEMATOCRIT 34.4 % (36-48); LYMPHOCYTES % (AUTO) 11.1 % (21.0-51.0); MEAN CORPUSCULAR HEMOGLOBIN 32.2 pg (27.0-33.0); MEAN CORPUSCULAR HGB CONC 33.4 g/dL (32.0-36.0); MEAN CORPUSCULAR VOLUME 96.4 fL (79-99); MONOCYTES % (AUTO) 6.1 % (3.0-13.0); PLATELET COUNT (AUTO) 148 K/uL (130-400); RED BLOOD CELL COUNT(AUTO) 3.57 MIL/uL (4.00-5.50); WHITE BLOOD COUNT (AUTO) 10.9 K/uL (4.8-10.8)
[2020-06-05 06:01] LABS: ALANINE AMINOTRANSFERASE 25 U/L (12-78); ALBUMIN 2.5 g/dL (3.5-5.0); ASPARTATE AMINOTRANSFERASE 21 U/L (10-37); BILIRUBIN,TOTAL 0.5 mg/dL (0.2-1.0); CARBON DIOXIDE 22 mmol/L (21-32); CHLORIDE 105 mmol/L (101-111); CREATININE 0.9 mg/dL (0.5-1.5); GLOMERULAR FILTR. RATE CALC 64 mL/min (>60); GLUCOSE,RANDOM 163 mg/dL (70-105); LACTATE DEHYDROGENASE 285 U/L (81-234); POTASSIUM 3.6 mmol/L (3.5-5.1); SODIUM SERUM 137 mmol/L (136-145); TOTAL PROTEIN, SERUM 6.6 g/dL (6.0-8.3); UREA NITROGEN, BLOOD 33 mg/dL (7-18)
[2020-06-05 06:08] VITALS: BP 145/82
[2020-06-05] MEDS: INSULIN HUMULIN R 100 UNIT/ML 3ML SQ SCH ×4 (06:25→22:52)
--- NOTE | 2020-06-05 06:52 | NUR ---
END OF SHIFT NOTE PATIENT RESTING COMFORTABLY WITH 1L OF OXYGEN VIA NASAL CANNULA. PATIENT SATTING AT 94% AND VITALS WNL. NO RESPIRATORY DISTRESS OR SHORTNESS OF BREATH OBSERVED.
[2020-06-05 07:00] VITALS: BP 146/69
[2020-06-05] MEDS: ENOXAPARIN SODIUM 40 MG/0.4 ML SYRINGE SQ SCH (09:00)
[2020-06-05] MEDS: ASCORBIC ACID 500 MG TAB PO SCH (09:00)
[2020-06-05] MEDS: DOXYCYCLINE HYCLATE 100 MG TABLET PO SCH ×2 (09:00→22:43)
[2020-06-05] MEDS: DEXAMETHASONE SOD PHOSPHATE 4 MG/ML 1ML VIAL IVP SCH (09:00)
[2020-06-05] MEDS: CEFTRIAXONE SODIUM 1 GM IVP SCH ×2 (09:00→22:43)
[2020-06-05] MEDS: ALPRAZOLAM 0.5 MG TABLET PO SCH ×3 (09:00→22:43)
[2020-06-05] MEDS: DEXTROSE 10%-WATER 1,000 ML IV SCH ×2 (09:05→22:52)
[2020-06-05 11:00] VITALS: BP 132/65
[2020-06-05 15:30] VITALS: BP 135/75
[2020-06-05] MEDS: FAMOTIDINE 20MG TAB 20 MG TAB PO SCH (22:43)
[2020-06-06 00:30] VITALS: BP 141/70
[2020-06-06 04:23] VITALS: BP 137/54
[2020-06-06 06:07] LABS: BASOPHILS % (AUTO) 0.1 % (0.0-5.0); EOSINOPHILS % (AUTO) 0.5 % (0.0-8.0); HEMATOCRIT 33.5 % (36-48); LYMPHOCYTES % (AUTO) 13.7 % (21.0-51.0); MEAN CORPUSCULAR HEMOGLOBIN 32.3 pg (27.0-33.0); MEAN CORPUSCULAR HGB CONC 32.8 g/dL (32.0-36.0); MEAN CORPUSCULAR VOLUME 98.2 fL (79-99); MONOCYTES % (AUTO) 8.6 % (3.0-13.0); NEUTROPHILS % (AUTO) 75.4 % (40.0-77.0); PLATELET COUNT (AUTO) 132 K/uL (130-400); RED BLOOD CELL COUNT(AUTO) 3.41 MIL/uL (4.00-5.50); RED CELL DISTRIBUTION WIDTH 13.2 % (11.0-15.5); WHITE BLOOD COUNT (AUTO) 7.5 K/uL (4.8-10.8)
[2020-06-06] MEDS: INSULIN HUMULIN R 100 UNIT/ML 3ML SQ SCH ×4 (06:15→20:42)
[2020-06-06 06:25] LABS: ALANINE AMINOTRANSFERASE 20 U/L (12-78); ALBUMIN 2.2 g/dL (3.5-5.0); ASPARTATE AMINOTRANSFERASE 18 U/L (10-37); BILIRUBIN,TOTAL 0.5 mg/dL (0.2-1.0); CARBON DIOXIDE 26 mmol/L (21-32); CHLORIDE 108 mmol/L (101-111); GLOMERULAR FILTR. RATE CALC 57 mL/min (>60); GLUCOSE,RANDOM 192 mg/dL (70-105); LACTATE DEHYDROGENASE 239 U/L (81-234); POTASSIUM 3.7 mmol/L (3.5-5.1); SODIUM SERUM 139 mmol/L (136-145); TOTAL PROTEIN, SERUM 5.8 g/dL (6.0-8.3); UREA NITROGEN, BLOOD 35 mg/dL (7-18)
[2020-06-06 08:00] VITALS: BP 110/49
[2020-06-06] MEDS: DOXYCYCLINE HYCLATE 100 MG TABLET PO SCH ×2 (09:17→21:00)
[2020-06-06] MEDS: ASCORBIC ACID 500 MG TAB PO SCH (09:17)
[2020-06-06] MEDS: DEXAMETHASONE SOD PHOSPHATE 4 MG/ML 1ML VIAL IVP SCH (09:18)
[2020-06-06] MEDS: ENOXAPARIN SODIUM 40 MG/0.4 ML SYRINGE SQ SCH (09:18)
[2020-06-06] MEDS: CEFTRIAXONE SODIUM 1 GM IVP SCH ×2 (09:18→21:00)
[2020-06-06] MEDS: ALPRAZOLAM 0.5 MG TABLET PO SCH ×3 (09:18→21:00)
[2020-06-06 11:30] VITALS: BP 129/64
[2020-06-06] MEDS: DEXTROSE 10%-WATER 1,000 ML IV SCH (12:07)
[2020-06-06 15:30] VITALS: BP 126/62
[2020-06-06] MEDS: FAMOTIDINE 20MG TAB 20 MG TAB PO SCH (21:00)
[2020-06-06 21:02] VITALS: BP 128/64
[2020-06-07 00:49] VITALS: BP 115/68
[2020-06-07] MEDS: DEXTROSE 10%-WATER 1,000 ML IV SCH ×2 (01:38→15:09)
[2020-06-07 05:31] VITALS: BP 122/60
[2020-06-07 05:33] LABS: BASOPHILS % (AUTO) 0.2 % (0.0-5.0); EOSINOPHILS % (AUTO) 0.2 % (0.0-8.0); HEMATOCRIT 37.8 % (36-48); LYMPHOCYTES % (AUTO) 9.1 % (21.0-51.0); MEAN CORPUSCULAR HGB CONC 32.8 g/dL (32.0-36.0); MEAN CORPUSCULAR VOLUME 97.4 fL (79-99); MONOCYTES % (AUTO) 8.6 % (3.0-13.0); NEUTROPHILS % (AUTO) 79.9 % (40.0-77.0); PLATELET COUNT (AUTO) 142 K/uL (130-400); RED BLOOD CELL COUNT(AUTO) 3.88 MIL/uL (4.00-5.50); RED CELL DISTRIBUTION WIDTH 13.2 % (11.0-15.5); WHITE BLOOD COUNT (AUTO) 12.8 K/uL (4.8-10.8)
[2020-06-07 05:59] LABS: ALBUMIN 2.8 g/dL (3.5-5.0); BILIRUBIN,TOTAL 0.7 mg/dL (0.2-1.0); CREATININE 1.1 mg/dL (0.5-1.5); CRP QUANTITATIVE 10.4 mg/L (0.00-9.0); POTASSIUM 3.4 mmol/L (3.5-5.1)
[2020-06-07] MEDS: INSULIN HUMULIN R 100 UNIT/ML 3ML SQ SCH ×4 (06:47→21:00)
--- NOTE | 2020-06-07 07:15 | NUR ---
REPORT GIVEN TO DAY SHIFT RN PT RESTING QUIETLY IN BED, REPORT GIVEN WILFRED CORDOVA LATE ENTRY
[2020-06-07 07:35] VITALS: BP 92/52
[2020-06-07] MEDS: CEFTRIAXONE SODIUM 1 GM IVP SCH ×2 (09:00→22:59)
[2020-06-07] MEDS: ALPRAZOLAM 0.5 MG TABLET PO SCH ×3 (09:03→22:59)
[2020-06-07] MEDS: DOXYCYCLINE HYCLATE 100 MG TABLET PO SCH ×2 (09:03→22:59)
[2020-06-07] MEDS: ASCORBIC ACID 500 MG TAB PO SCH (09:03)
[2020-06-07] MEDS: ENOXAPARIN SODIUM 40 MG/0.4 ML SYRINGE SQ SCH (09:03)
[2020-06-07 11:47] VITALS: BP 95/57
[2020-06-07 15:33] VITALS: BP 118/70
--- NOTE | 2020-06-07 16:08 | NUR ---
DC PLAN VISITED WITH PATIENT. GOT ORDER FOR SNF. CALLED DAUGHTER SINCE PATIENT HAS DEMENTIA. PER DAUGHTER DECLINED SNF SAID WANTS PATIENT HOME. PLACED ORDER FOR HOME O2 EVAL. ASKED FOR BEV IF PATIENT QUALIFIES. DAUGHTER GAVE TELEPHONE CONSENT. Addendum: 06/07/20 at 1610 by MALIA JIMENEZ RN CM Amended: Links added.
--- NOTE | 2020-06-07 16:12 | NUR ---
DYSPHAGIA EVALUATION COMPLETED. -S/S OF ASPIRATION. RECOMMEND PUREED, THIN LIQUIDS; PILLS CRUSHED WITH APPLESAUCE. Addendum: 06/07/20 at 1613 by AUGUSTINE FRANK, [facility] Amended: Links added.
--- NOTE | 2020-06-07 18:30 | NUR ---
0800 PT REPORTEDLY FOUND OUT OF BED ONTO FLOOR, NO VISIBLE OR REPORTED INJURIES, LEAD CASE MANAGER CURRENTLY ROUNDING FOR HOSPITALIST GROUP ALSO AT BEDSIDE, NNO. AT TIME OF ROUNDING HOSPITALIST ELECTROSTATIC PAINTER MADE AWARE,NNO. PT DENIES PAIN AND DISCOMFOR. VITAL SIGNS TAKEN AND WITHIN NORMAL LIMITS, INITIAL NEURO CHECK COMPLETED AND PT AT BASELINE. fAMILY UPDATED WITH STATUS. SPEECH EVAL ALSO COMPLETED THIS MORNING AND RECOMMENDATIONS ARE FOR A PUREED DIET WITH THIN LIQUIDS. Addendum: 06/07/20 at 1843 by WILFRED WONG RN RN PT ASSISTED WITH PUREED DINNER, ONLY WANTED APPLESAUCE, WATER, AND ICED TEA. LEFT PEACHES AT BEDSIDE FOR SNACK. FACETIMED PT'S DAUGHTER AND FAMILY, PT ABLE TO SPEAK FOR A SHORT TIME BEFORE SAYING SHE WAS TIRED. DAUGHTER KARINE MENTIONED A NURSE CALLING HER EARLIER SAYING PT WAS GOING TO BE DISCHARGED TODAY. INFORMED PT'S DAUGHTER NO DISCHARGE ORDER WAS GIVEN AT THIS TIME.
[2020-06-07 21:20] VITALS: BP 99/68
[2020-06-07] MEDS: FAMOTIDINE 20MG TAB 20 MG TAB PO SCH (22:59)
[2020-06-08 00:46] VITALS: BP 121/57
--- NOTE | 2020-06-08 02:27 | NUR ---
COMMUNICATION WITH H[employer]E COMMUNICATED WITH DTR VIA PHONE AT [phone], DTR STATES SHE WAS CALLED THIS AM AND TOLD PT WAS GOING TO BE DISCHARGED TODAY; HOWEVER DID NOT HEAR AGAIN AND WAITED ALL DAY. DTR STATES SHE IS COMING TO GET HER MOM TOMORROW MORNING. UPDATED HAL RN OF PT STATUS.
[2020-06-08 04:24] VITALS: BP 112/47
[2020-06-08] MEDS: ACETAMINOPHEN 325 MG TAB PO PRN ×2 (04:30→17:03)
[2020-06-08] MEDS: DEXTROSE 10%-WATER 1,000 ML IV SCH (04:40)
--- NOTE | 2020-06-08 05:17 | NUR ---
ZAIRE HELD HELD LANTUS DUE TO PT WEAKNESS AND DECREASED INTAKE OF FOOD AND ENSURE BLOOD SUGARS 2099 - 137 AND
[2020-06-08] MEDS: INSULIN HUMULIN R 100 UNIT/ML 3ML SQ SCH (06:49)
[2020-06-08 07:46] VITALS: BP 96/48
[2020-06-08] MEDS ORDERED: DEXAMETHASONE 4 MG TAB PO SCH (09:00)
[2020-06-08 11:57] VITALS: BP 117/46
--- NOTE | 2020-06-08 12:30 | NUR ---
DC PLAN SPOKE TO DAUGHTER SAID WANT TO TAKE PATIENT HOME. REFUSED SNF. LET NURSE AND PLACE ORANGE PAPER SAYING THIS. PER ORDERS SEEM TO BE NEEDING SPEECH EVAL. PER DAUGHTER SAID HAS A WHEEL CHAIR AND IS READY TO SYSTEM SUPPORT DEVELOPER MOM. Addendum: 06/08/20 at 1231 by MALIA JIMENEZ RN CM Amended: Links added.
--- NOTE | 2020-06-08 13:46 | NUR ---
RDSCREEN - LOS X 11 RD Consult cancelled. Pt however with LOS x 11 days. Pt with 75gm CC, Mechanical soft diet order. Pt s/p Speech Eval; Pureed diet order recommended. No report of GI distress, however last recorded BM as 05/01/20. PO intake at 50%. RN unavailable at time of screen. Recommend Glucerna TID with meals Recommend 1700-2100mL H2O daily Recommend stool softener/Laxative if Pt is constipated Recommend modify to puree diet as medically feasible. RD to continue to monitor. Please notify as additional nutrition concerns arise. Thank you.
[2020-06-08] MEDS ORDERED: DOXY100C40 PO (14:41)
[2020-06-08] MEDS ORDERED: ALBU8.5H8 IH (14:41)
[2020-06-08] MEDS ORDERED: DEXA6TAB7 PO (14:41)
[2020-06-08] MEDS ORDERED: ASCO500T10 PO (14:41)
[2020-06-08] MEDS ORDERED: BENZ-39 PO (14:41)
[2020-06-08] MEDS ORDERED: ZINC1CAP3 PO (14:41)
[2020-06-08 15:25] VITALS: BP 112/58
--- NOTE | 2020-06-08 16:50 | NUR ---
DAUGHTER TOOK PATIENT AGAINST MEDICAL ADVICE, PER W/C, PRIVATE CAR
== END 2020-06-08 17:00 | disposition left against medical advice (07) | DRG 177 ==
LOC: EDH 12:00 → EDHIP 15:57 → 4CH 18:59 → 4AH 05-30 06:47 → 2DH 06-04 12:32
PROVIDERS: ADMIT Internal Medicine; ATTEND Internal Medicine
DX: U07.1 COVID-19 (principal); J12.89 Other viral pneumonia; J96.01 Acute respiratory failure with hypoxia; G93.41 Metabolic encephalopathy; N17.9 Acute kidney failure, unspecified; F05 Delirium due to known physiological condition; E87.0 Hyperosmolality and hypernatremia; E87.70 Fluid overload, unspecified; F02.80 Dementia in other diseases classified elsewhere, unspecified severity, without behavioral disturbance, psychotic disturbance, mood disturbance, and anxiety; I10 Essential (primary) hypertension; E11.9 Type 2 diabetes mellitus without complications; G30.9 Alzheimer's disease, unspecified; I35.1 Nonrheumatic aortic (valve) insufficiency; Z96.652 Presence of left artificial knee joint; Z90.5 Acquired absence of kidney; Z88.8 Allergy status to other drugs, medicaments and biological substances; Z83.3 Family history of diabetes mellitus; Z82.3 Family history of stroke; Z80.0 Family history of malignant neoplasm of digestive organs; Z80.41 Family history of malignant neoplasm of ovary; Z80.8 Family history of malignant neoplasm of other organs or systems; Z82.49 Family history of ischemic heart disease and other diseases of the circulatory system
CPT/HCPCS: 36415; 36600; 70450; 71045; 80048; 80053; 81001; 82550; 82728; 82803; 82948; 83036; 83605; 83615; 83735; 83874; 83880; 84100; 84145; 84443; 84484; 85025; 85378; 85610; 85651; 85730; 86140; 86850; 86900; 86901; 87040; 87077; 87088; 87186; 87426; 87804; 92610; 93005; 93306; 93356; 94760; 97039; A4606; G0378; J0360; J0461; J0696; J1100; J1650; J1815; J2060; J2920; J3490; J7030; J7070; J7120; J8540; U0003